=== PATIENT | male | born 1935 | race Caucasian/White ===

== ENCOUNTER → 2017-08-27 | Outpatient (CLI) | payer OTHER ==
[~2017-08-27] MED LIST: REGADENOSON 0.4 MG/5 ML SYRINGE ONE
== END ==
LOC: CFH 07:10
PROVIDERS: ATTEND Internal Medicine Cardiovascular Disease
DX: I25.5 Ischemic cardiomyopathy (principal); I25.2 Old myocardial infarction; I45.10 Unspecified right bundle-branch block
CPT/HCPCS: 78452; 93017; A9502; J2785

== ENCOUNTER 2019-10-01 20:17 | Inpatient (IN) | payer MEDICARE, OTHER ==
[~2019-10-01] VITALS: Ht 175.3 cm; Wt 86.0 kg
[2019-10-01] MEDS ORDERED: AMIODARONE 450 MG in DEXTROSE 5% 241 ML IV PRN (20:25)
[2019-10-01] MEDS ORDERED: AMIODARONE 150 MG in DEXTROSE 5% 97 ML IV ONE (20:25)
[2019-10-01] MEDS ORDERED: AMIODARONE 50 MG/ML, 3ML ONE (20:28)
[2019-10-01 20:46] LABS: BASOPHILS # (AUTO) 0.06 x10^3/uL (0-0.1); BASOPHILS % (AUTO) 1 % (0-1); EOSINOPHILS % (AUTO) 4 % (1-7); LYMPHOCYTES # (AUTO) 2.67 x10^3/uL (1-3.4); LYMPHOCYTES % (AUTO) 39 % (22-44); MD NO; MEAN CORPUSCULAR HEMOGLOBIN 31.4 pg (27.5-34.5); MEAN CORPUSCULAR HGB CONC 33.2 g/dL (33.2-36.2); MEAN CORPUSCULAR VOLUME 94.5 fL (81-97); MEAN PLATELET VOLUME 8.9 fL (7.4-10.4); MONOCYTES # (AUTO) 0.71 x10^3/uL (0.2-0.8); MONOCYTES % (AUTO) 10 % (2-9); NEUTROPHILS % (AUTO) 46 % (42-75); PLATELET COUNT 219 x10^3/uL (130-400); RED BLOOD COUNT 4.99 x10^6/uL (4.38-5.82); RED CELL DISTRIBUTION WIDTH 12.9 % (9.4-14.8)
--- NOTE | 2019-10-01 20:49 | NUR ---
PT RESTING ON GURNEY, HR 160-170'S. PT DENIES CHEST PAIN AT THIS TIME. C/O SHORTNESS OF BREATH. AMIODARONE BOLUS INFUSING AT THIS TIME. PT TOLERATING WELL.
[2019-10-01 20:50] LABS: PROTHROMBIN TIME 10.6 Seconds (9.6-11.5)
[2019-10-01 20:55] LABS: ALANINE AMINOTRANSFERASE 53 U/L (12-78); ALBUMIN 3.5 g/dL (3.4-5.0); ANION GAP 8 mmol/L (5-15); CHLORIDE 106 mmol/L (98-107); CREATININE 1.83 mg/dL (0.7-1.3)
[2019-10-01 21:00] LABS: ALKALINE PHOSPHATASE 66 U/L (45-117); BILIRUBIN,TOTAL 0.5 mg/dL (0.2-1.0); TOTAL PROTEIN 6.9 g/dL (6.4-8.2); TROPONIN I < 0.015 ng/mL (0.000-0.045)
[2019-10-01] MEDS ORDERED: FILTER 0.22 MICRON IV ONE (21:00)
--- NOTE | 2019-10-01 21:14 | NUR ---
ERMD LOU AT BEDSIDE TO EVAL PT. AWAITING CARDIOLOGY CONSULT.
[2019-10-01] MEDS ORDERED: DILTIAZEM 5 MG/ML, 5ML ONE (21:24)
[2019-10-01] MEDS ORDERED: DILTIAZEM 5 MG/ML, 5ML IVPush ONE (21:30)
--- NOTE | 2019-10-01 21:30 | NUR ---
PT MEDICATED WITH 10MG DILTIAZEM AND CONVERTED TO SR HR 70'S. PT TOLERATED WELL.
[2019-10-01] MEDS ORDERED: TAMS-11 PO (21:57)
[2019-10-01] MEDS ORDERED: AZEL137S4 NAS (21:57)
[2019-10-01] MEDS ORDERED: ATOR40TA78 PO (21:57)
[2019-10-01] MEDS ORDERED: LEVO125T5 PO (21:57)
[2019-10-01] MEDS ORDERED: ASPI-496 PO (21:57)
[2019-10-01] MEDS ORDERED: GLIP5TAB10 PO (21:57)
[2019-10-01] MEDS ORDERED: FINA5TAB4 PO (21:57)
[2019-10-01] MEDS: INSULIN LISPRO 100 UNITS/ML, PEN SQ-INSULIN SCH (22:30)
[2019-10-01] MEDS ORDERED: morphine SULFATE 10 MG/ML, 1ML IVPush PRN (22:30)
[2019-10-01] MEDS ORDERED: ONDANSETRON 2MG/ML, 2ML IVPush PRN (22:30)
[2019-10-01] MEDS ORDERED: ONDANSETRON ODT 4 MG PO PRN (22:30)
[2019-10-01 22:37] LABS: BASOPHILS # (AUTO) 0.04 x10^3/uL (0-0.1); BASOPHILS % (AUTO) 1 % (0-1); EOSINOPHILS # (AUTO) 0.25 x10^3/uL (0-0.4); EOSINOPHILS % (AUTO) 4 % (1-7); LYMPHOCYTES # (AUTO) 2.31 x10^3/uL (1-3.4); LYMPHOCYTES % (AUTO) 33 % (22-44); MD NO; MEAN CORPUSCULAR HEMOGLOBIN 31.6 pg (27.5-34.5); MEAN CORPUSCULAR HGB CONC 33.6 g/dL (33.2-36.2); MEAN CORPUSCULAR VOLUME 94.2 fL (81-97); MEAN PLATELET VOLUME 8.3 fL (7.4-10.4); MONOCYTES # (AUTO) 0.62 x10^3/uL (0.2-0.8); MONOCYTES % (AUTO) 9 % (2-9); NEUTROPHILS # (AUTO) 3.88 x10^3/uL (1.8-6.8); NEUTROPHILS % (AUTO) 55 % (42-75); PLATELET COUNT 207 x10^3/uL (130-400); RED BLOOD COUNT 4.56 x10^6/uL (4.38-5.82); RED CELL DISTRIBUTION WIDTH 12.7 % (9.4-14.8)
[2019-10-01 22:43] VITALS: BP 108/67
[2019-10-01] MEDS: HEPARIN 5,000 UNITS/ML, 1ML SQ SCH (23:16)
[2019-10-01] MEDS: ATORVASTATIN 40 MG TABLET PO SCH (23:16)
[2019-10-02 01:02] VITALS: BP 102/65
[2019-10-02 02:20] LABS: ALANINE AMINOTRANSFERASE 44 U/L (12-78); ALBUMIN 2.9 g/dL (3.4-5.0); ANION GAP 6 mmol/L (5-15); CALCIUM 8.6 mg/dL (8.5-10.1); CHLORIDE 111 mmol/L (98-107); CREATININE 1.55 mg/dL (0.7-1.3)
[2019-10-02 02:26] LABS: TROPONIN I 0.147 ng/mL (0.000-0.045)
[2019-10-02 02:31] LABS: ALKALINE PHOSPHATASE 50 U/L (45-117); BILIRUBIN,TOTAL 0.5 mg/dL (0.2-1.0); CHOL/HDL RATIO 2.5; CHOLESTEROL, TOTAL 113 mg/dL (140-239); HDL CHOL % 40 % (26-37); HDL CHOLESTEROL (DIRECT) 45 mg/dL (40-60); LDL CHOLESTEROL,CALCULATED 33 mg/dL (54-169); LDL/HDL RATIO 0.7 (0.5-3.0); TOTAL PROTEIN 5.8 g/dL (6.4-8.2); TRIGLYCERIDES 174 mg/dL (50-200); VLDL CHOLESTEROL 35 mg/dL (0-25)
[2019-10-02] MEDS: HEPARIN 5,000 UNITS/ML, 1ML SQ SCH (05:38)
[2019-10-02] MEDS: INSULIN LISPRO 100 UNITS/ML, PEN SQ-INSULIN SCH ×4 (06:12→20:39)
[2019-10-02 07:10] VITALS: BP 110/63
[2019-10-02 08:57] LABS: TROPONIN I 0.184 ng/mL (0.000-0.045)
[2019-10-02] MEDS ORDERED: CEFAZOLIN PMX 1GM/50ML 50 ML IVPB ONE (09:00)
[2019-10-02] MEDS: TAMSULOSIN 0.4 MG CAP.ER.24H PO SCH (09:04)
[2019-10-02] MEDS: ASPIRIN 81 MG TABLET EC PO SCH (09:04)
[2019-10-02] MEDS: LEVOTHYROXINE 125 MCG TABLET PO SCH (09:04)
[2019-10-02] MEDS: FINASTERIDE 5 MG TABLET PO SCH (09:04)
[2019-10-02] MEDS ORDERED: TICAGRELOR 90 MG TABLET ONE (09:49)
[2019-10-02] MEDS ORDERED: MIDAZOLAM 1 MG/ML, 5ML ONE (09:49)
[2019-10-02] MEDS ORDERED: FENTANYL PF 100 MCG/2ML ONE (09:49)
[2019-10-02] MEDS ORDERED: LIDOCAINE 2%, 20ML ONE ×2 (09:50→10:42)
[2019-10-02] MEDS ORDERED: HEPARIN 1,000 UNITS/ML, 10ML ONE (09:50)
[2019-10-02] MEDS ORDERED: CEFAZOLIN 1,000 MG ONE (09:50)
[2019-10-02] MEDS ORDERED: BIVALIRUDIN 250 MG ONE (09:50)
[2019-10-02] MEDS ORDERED: CEFAZOLIN PMX 1GM/50ML 50 ML ONE (09:50)
[2019-10-02] MEDS ORDERED: LIDOCAINE-MPF 1%, 5ML ONE (09:50)
[2019-10-02] MEDS ORDERED: VERAPAMIL 2.5 MG/ML, 2ML ONE (09:50)
[2019-10-02] MEDS ORDERED: SODIUM CHLORIDE 0.9% 1,000 ML IV SCH (11:00)
[2019-10-02] MEDS ORDERED: HOLD MEDICATION MC PRN (12:00)
[2019-10-02 14:26] VITALS: BP 110/57
[2019-10-02] MEDS: AMIODARONE 450 MG in DEXTROSE 5% 241 ML IV PRN ×3 (14:28→22:10)
[2019-10-02] MEDS: FILTER 0.22 MICRON IV PRN ×2 (14:29→20:30)
[2019-10-02] MEDS ORDERED: AMIODARONE 150 MG in DEXTROSE 5% 100 ML IV ONE (14:30)
[2019-10-02] MEDS: ACETAMINOPHEN 325 MG TABLET PO PRN (16:38)
[2019-10-02] MEDS: CEFAZOLIN PMX 1GM/50ML 50 ML IVPB SCH (18:52)
[2019-10-02 19:26] VITALS: BP 120/69
[2019-10-02] MEDS: ATORVASTATIN 40 MG TABLET PO SCH (20:34)
[2019-10-02] MEDS: SODIUM CHLORIDE FLUSH 10ML SYR IVF SCH (20:35)
[2019-10-02] MEDS ORDERED: TEMPLATE NON-FORMULARY MED. (Azelastine Hcl Nasal 1 SPRAY) NAS SCH (21:00)
[2019-10-02 22:06] VITALS: BP 134/78
[2019-10-03 01:19] VITALS: BP 143/74
[2019-10-03] MEDS: CEFAZOLIN PMX 1GM/50ML 50 ML IVPB SCH (03:24)
[2019-10-03 05:01] LABS: ANION GAP 7 mmol/L (5-15); CALCIUM 8.8 mg/dL (8.5-10.1); CHLORIDE 110 mmol/L (98-107)
[2019-10-03 05:02] LABS: CREATININE 1.46 mg/dL (0.7-1.3)
[2019-10-03 05:12] LABS: BASOPHILS # (AUTO) 0.06 x10^3/uL (0-0.1); BASOPHILS % (AUTO) 1 % (0-1); EOSINOPHILS % (AUTO) 4 % (1-7); LYMPHOCYTES # (AUTO) 2.11 x10^3/uL (1-3.4); LYMPHOCYTES % (AUTO) 25 % (22-44); MD NO; MEAN CORPUSCULAR HEMOGLOBIN 31.4 pg (27.5-34.5); MEAN CORPUSCULAR HGB CONC 33.3 g/dL (33.2-36.2); MEAN CORPUSCULAR VOLUME 94.3 fL (81-97); MONOCYTES # (AUTO) 0.93 x10^3/uL (0.2-0.8); MONOCYTES % (AUTO) 11 % (2-9); NEUTROPHILS # (AUTO) 5.16 x10^3/uL (1.8-6.8); NEUTROPHILS % (AUTO) 60 % (42-75); PLATELET COUNT 182 x10^3/uL (130-400); RED BLOOD COUNT 4.47 x10^6/uL (4.38-5.82); RED CELL DISTRIBUTION WIDTH 12.7 % (9.4-14.8)
[2019-10-03 07:03] VITALS: BP 134/80
[2019-10-03] MEDS: INSULIN LISPRO 100 UNITS/ML, PEN SQ-INSULIN SCH ×4 (07:24→20:28)
[2019-10-03] MEDS: ASPIRIN 81 MG TABLET EC PO SCH (07:54)
[2019-10-03] MEDS: LEVOTHYROXINE 125 MCG TABLET PO SCH (07:54)
[2019-10-03] MEDS: TAMSULOSIN 0.4 MG CAP.ER.24H PO SCH (07:54)
[2019-10-03] MEDS: ACETAMINOPHEN 325 MG TABLET PO PRN (07:55)
[2019-10-03] MEDS: FINASTERIDE 5 MG TABLET PO SCH (08:00)
[2019-10-03 09:19] VITALS: BP 142/74
[2019-10-03] MEDS: SODIUM CHLORIDE FLUSH 10ML SYR IVF SCH ×2 (09:20→20:28)
[2019-10-03] MEDS: AMIODARONE 200 MG TABLET PO SCH ×2 (09:20→20:28)
[2019-10-03] MEDS: CARVEDILOL 3.125 MG TABLET PO SCH ×2 (09:20→17:55)
[2019-10-03] MEDS ORDERED: FLUT15.845 NAS (10:59)
[2019-10-03] MEDS: FLUTICASONE NASAL SPRAY 16GM NAS SCH ×2 (11:15→20:28)
[2019-10-03 14:01] VITALS: BP 117/68
[2019-10-03] MEDS ORDERED: AMIODARONE 450 MG in DEXTROSE 5% 241 ML IV PRN (14:30)
[2019-10-03 17:54] VITALS: BP 126/67
[2019-10-03 20:18] VITALS: BP 143/78
[2019-10-03] MEDS: ATORVASTATIN 40 MG TABLET PO SCH (20:28)
[2019-10-04 02:47] VITALS: BP 120/70
[2019-10-04 04:53] LABS: ANION GAP 8 mmol/L (5-15); CALCIUM 9.4 mg/dL (8.5-10.1); CHLORIDE 108 mmol/L (98-107)
[2019-10-04 04:55] LABS: BASOPHILS # (AUTO) 0.02 x10^3/uL (0-0.1); BASOPHILS % (AUTO) 0 % (0-1); EOSINOPHILS # (AUTO) 0.27 x10^3/uL (0-0.4); EOSINOPHILS % (AUTO) 3 % (1-7); LYMPHOCYTES # (AUTO) 1.61 x10^3/uL (1-3.4); LYMPHOCYTES % (AUTO) 15 % (22-44); MD NO; MEAN CORPUSCULAR HEMOGLOBIN 31.3 pg (27.5-34.5); MEAN CORPUSCULAR VOLUME 94.6 fL (81-97); MEAN PLATELET VOLUME 9.1 fL (7.4-10.4); MONOCYTES # (AUTO) 1.22 x10^3/uL (0.2-0.8); MONOCYTES % (AUTO) 12 % (2-9); NEUTROPHILS # (AUTO) 7.43 x10^3/uL (1.8-6.8); NEUTROPHILS % (AUTO) 70 % (42-75); PLATELET COUNT 171 x10^3/uL (130-400); RED BLOOD COUNT 4.58 x10^6/uL (4.38-5.82); RED CELL DISTRIBUTION WIDTH 12.6 % (9.4-14.8)
[2019-10-04 05:01] LABS: CREATININE 1.44 mg/dL (0.7-1.3)
[2019-10-04 06:02] VITALS: BP 127/70
[2019-10-04] MEDS: CARVEDILOL 3.125 MG TABLET PO SCH (06:05)
[2019-10-04 06:41] VITALS: BP 130/68
[2019-10-04] MEDS: INSULIN LISPRO 100 UNITS/ML, PEN SQ-INSULIN SCH ×2 (07:26→10:51)
[2019-10-04] MEDS: FINASTERIDE 5 MG TABLET PO SCH (07:51)
[2019-10-04] MEDS: LEVOTHYROXINE 125 MCG TABLET PO SCH (07:51)
[2019-10-04] MEDS: AMIODARONE 200 MG TABLET PO SCH (07:51)
[2019-10-04] MEDS: ASPIRIN 81 MG TABLET EC PO SCH (07:51)
[2019-10-04] MEDS: ACETAMINOPHEN 325 MG TABLET PO PRN (07:51)
[2019-10-04] MEDS: TAMSULOSIN 0.4 MG CAP.ER.24H PO SCH (07:51)
[2019-10-04] MEDS: SODIUM CHLORIDE FLUSH 10ML SYR IVF SCH (07:56)
[2019-10-04] MEDS: FLUTICASONE NASAL SPRAY 16GM NAS SCH (07:56)
[2019-10-04 12:35] VITALS: BP 116/70
[2019-10-04] MEDS ORDERED: CARV6.2512 PO (13:03)
[2019-10-04] MEDS ORDERED: AMIO200T42 PO (13:03)
[2019-10-04] MEDS ORDERED: CARVEDILOL 6.25 MG TABLET PO SCH (18:00)
== END 2019-10-04 14:05 | disposition home or self-care (01) | DRG 222 ==
LOC: ED 21:06 → EDIP 22:10 → 5SO 22:21
PROVIDERS: ADMIT Internal Medicine; ATTEND Hospitalist
PROC: B2151ZZ Fluoroscopy of Left Heart using Low Osmolar Contrast (ICD-10-PCS; principal; 2019-10-02)
PROC: 02HK3KZ Insertion of Defibrillator Lead into Right Ventricle, Percutaneous Approach (ICD-10-PCS; 2019-10-02)
PROC: 0JH609Z Insertion of Cardiac Resynchronization Defibrillator Pulse Generator into Chest Subcutaneous Tissue and Fascia, Open Approach (ICD-10-PCS; 2019-10-02)
PROC: 02H63KZ Insertion of Defibrillator Lead into Right Atrium, Percutaneous Approach (ICD-10-PCS; 2019-10-02)
PROC: 4A023N7 Measurement of Cardiac Sampling and Pressure, Left Heart, Percutaneous Approach (ICD-10-PCS; 2019-10-02)
PROC: B2111ZZ Fluoroscopy of Multiple Coronary Arteries using Low Osmolar Contrast (ICD-10-PCS; 2019-10-02)
DX: I21.4 Non-ST elevation (NSTEMI) myocardial infarction (principal); N17.0 Acute kidney failure with tubular necrosis; I47.2 Ventricular tachycardia; I25.10 Atherosclerotic heart disease of native coronary artery without angina pectoris; E78.5 Hyperlipidemia, unspecified; E03.9 Hypothyroidism, unspecified; M19.90 Unspecified osteoarthritis, unspecified site; E11.65 Type 2 diabetes mellitus with hyperglycemia; N40.0 Benign prostatic hyperplasia without lower urinary tract symptoms; Z91.018 Allergy to other foods; Z79.899 Other long term (current) drug therapy; Z79.82 Long term (current) use of aspirin; Z87.891 Personal history of nicotine dependence; Z79.4 Long term (current) use of insulin; I25.2 Old myocardial infarction; Z79.84 Long term (current) use of oral hypoglycemic drugs
CPT/HCPCS: 33249; 36415; 71045; 80048; 80053; 80061; 82962; 83036; 83735; 83880; 84100; 84443; 84484; 85025; 85610; 85730; 93005; 93458; 99156; 99157; C1721; C1769; C1779; C1892; C1894; C1895; C8929; G0378; J0583; J0690; J1644; J2250; J3010; J7060; J0282; J1815; Q9967

== ENCOUNTER 2020-01-18 13:43 | Outpatient (CLI) | payer MEDICARE ==
[~2020-01-18 13:43] MED LIST changes: +AMIO200T42 PO; +ASPI-496 PO; +ATOR40TA78 PO; +AZEL137S4 NAS; +CARV6.2512 PO; +FINA5TAB4 PO; +FLUT15.845 NAS; +GLIP5TAB10 PO; +LEVO125T5 PO; -REGADENOSON 0.4 MG/5 ML SYRINGE ONE; +TAMS-11 PO
== END 2020-01-18 23:59 | disposition home or self-care (01) ==
LOC: CFH 13:43 → RAD 23:59
PROVIDERS: ATTEND Internal Medicine Cardiovascular Disease
DX: I82.622 Acute embolism and thrombosis of deep veins of left upper extremity (principal); M79.622 Pain in left upper arm

== ENCOUNTER 2020-12-01 12:47 | Outpatient (CLI) | payer MEDICARE | END 2020-12-01 23:59 | disposition home or self-care (01) | LOC: RAD 12:47 | PROVIDERS: ATTEND Internal Medicine Gastroenterology | DX: K22.8 Other specified diseases of esophagus (principal); R13.19 Other dysphagia; I42.9 Cardiomyopathy, unspecified; I25.2 Old myocardial infarction | CPT/HCPCS: 74220 ==